=== PATIENT | female | born 1955 | race Caucasian/White ===

== ENCOUNTER 2018-11-05 10:44 | Emergency (ER) | payer OTHER ==
[2018-11-05 10:53] VITALS: TEMP 98.6; BMI 54.1
--- NOTE | 2018-11-05 10:53 | PDOC ---
History of Present Illness - General Chief Complaint: Respiratory Stated Complaint: COUGH, DIFF BREATHING Time Seen by Provider: 11/05/18 10:45 History Source: Patient Exam Limitations: No Limitations - History of Present Illness Initial Comments: 11/05/18 10:47 63 yo h/o sasonal allergies., here with worsening sob, cough and orthopnea . states cough and sob is worse in early am. is sleeping with 4 pillows. no f/c cough nonproductive. no exertional dyspnea, no leg swelling. no tobacco history , however has significant second hand smoke exposure ( both parents growing up, and her sister smoke ) no f/c no cp. denies hemptysis. used to use claritin for allergies, not currently taking any meds. no other complaints. 11/05/18 11:05 Past History - Past Medical History Allergies/Adverse Reactions: Allergies Allergy/AdvReac Type Severity Reaction Status Date / Time codeine Allergy Verified 11/05/18 10:49 Home Medications: Ambulatory Orders Albuterol Sulfate Inhaler - [Ventolin HFA Inhaler -] 2 inh PO Q4H PRN #1 inh Fluticasone Prop 0.05% Nasal [Flonase -] 1 spray NS DAILY #1 bot 11/05/18 Anemia: No Asthma: No Cancer: No Cardiac Disorders: No CVA: No COPD: No CHF: No Dementia: No Diabetes: No GI Disorders: No Disorders: No HTN: No Hypercholesterolemia: Yes Liver Disease: No Seizures: No Thyroid Disease: No - Surgical History Abdominal Surgery: No Appendectomy: No Cardiac Surgery: No Cholecystectomy: No Lung Surgery: No Neurologic Surgery: No Orthopedic Surgery: No - Suicide/Smoking/Psychosocial Hx Smoking History: Former smoker Have you smoked in the past 12 months: No Number of Cigarettes Smoked Daily: 0 If you are a former smoker, when did you quit?: 1973 Hx Alcohol Use: No Drug/Substance Use Hx: No Substance Use Type: None Hx Substance Use Treatment: No Review of Systems - Review of Systems Constitutional: No: Chills, Diaphoresis, Fever Respiratory: Yes: Cough, Shortness of Breath Cardiac (ROS): No: Chest Pain, Edema Integumentary: No: Bruising, Change in Color Neurological: Yes: Other All Other Systems: Reviewed and Negative *Physical Exam - Physical Exam Comments: 11/05/18 10:49 awake alert bilat nasal turbinate enlargement. posterior pharynx cobblestoning. lungs clear no wheezes no crackles. . heart rrr no mrg abd soft obese nontender ext wwp no edema. nuero alert oriented. skin warm and dry no rash. 11/05/18 11:03 Heart Score/ECG Review #1 General ECG Interpretation: Sinus Rhythm, Normal Rate (76), Normal Intervals, No acute ischemic changes ED Treatment Course - LABORATORY CBC & Chemistry Diagram: 11/05/18 11:15 11/05/18 11:15 Medical Decision Making - Medical Decision Making 11/05/18 10:50 63 yo F with no significant pmhx here with sob cough, orthopnea. h/o second hand smoke exposure and seasonal allergies. differential chf pna, postnasal drip. anemia, bronchitis. plan cbc cmp ekg, cxr cmp, BNP cardiac will treat with duoneb 11/05/18 11:05 11/05/18 12:28 pt with normal apppearing cxr. trop negative labs unremarkable. cough improved with duoneb. awaiting BNP. possible dc home with inhaler and pulm fu. pt denies cp. 11/05/18 13:08 d/w dr dennis. will see pt outpt. will give referral to [facility] for [facility]. pt dc with flonase and duoneb. *DC/Admit/Observation/Transfer Diagnosis at time of Disposition: Post-nasal drip, Bronchitis - Discharge Dispostion Disposition: HOME Condition at time of disposition: Improved Decision to Admit order: No - Prescriptions Prescriptions: Albuterol Sulfate Inhaler - [Ventolin HFA Inhaler -] 2 inh PO Q4H PRN #1 inh PRN Reason: Cough Fluticasone Prop 0.05% Nasal [Flonase -] 1 spray NS DAILY #1 bot - Referrals Referrals: Stephan Vargas MD [Staff Physician] - Yosvany Dennis MD [Primary Care Provider] - - Patient Instructions Printed Discharge Instructions: DI for Acute Bronchitis Additional Instructions: you can use albuterol inhaler 2 puffs every 4 nhrs as needed for cough, shortness of breath. use flonase nasal spray one spray each nostril daily to help with allerigic rhinitis and post nasal drip. you should also continue using claritin. follow up with DR Dennis, within one week. return for any swelling , chest pain, worsening shortness of breath or any concerns. you may also consider seeing a distribution estimator see referral information for Dr Vargas. call to schedule. - Post Discharge Activity
[2018-11-05] MEDS ORDERED: ALBUTEROL SO4 2.5/IPRATROPIUM 0.5 INH SOL 3 ML VIAL.NEB. NEB ONE ×2 (11:02→11:25)
[2018-11-05 11:27] LABS: BASO % 0.6 % (0-2.0); EOS % 4.8 % (0-4.5); HEMATOCRIT 47.1 % (32.4-45.2); HEMOGLOBIN 15.6 GM/dl (10.7-15.3); LYMPH % 29.3 % (8-40); MCHC 33.2 g/dl (32.0-36.0); MEAN CELL VOLUME 84.3 fl (80-96); MEAN PLT VOLUME 7.2 fl (7.5-11.1); MONO % 4.7 % (3.8-10.2); NEUT % 60.6 % (42.8-82.8); PLATELET COUNT 346 K/MM3 (134-434); RBC 5.59 M/mm3 (3.60-5.2); RDW 14.6 % (11.6-15.6)
[2018-11-05 11:47] LABS: ALBUMIN 3.8 g/dl (3.4-5.0); BILIRUBIN,TOTAL 0.5 mg/dl (0.2-1); CREATININE 0.8 mg/dl (0.55-1.3); POTASSIUM 4.1 mmol/L (3.5-5.1); TOT PROT 6.8 g/dl (6.4-8.2)
[2018-11-05 13:17] VITALS: BP 132/75; PULSE 71
--- NOTE | 2018-11-06 13:38 | EKG ---
Test Reason : Blood Pressure : / mmHG Vent. Rate : 076 BPM Atrial Rate : 076 BPM P-R Int : 156 ms QRS Dur : 088 ms QT Int : 388 ms P-R-T Axes : 028 -26 015 degrees QTc Int : 436 ms NORMAL SINUS RHYTHM LOW VOLTAGE QRS BORDERLINE ECG NO PREVIOUS ECGS AVAILABLE Confirmed by MD LUIS, JOHNY ([id number]) on 11/06/2018 1:37:33 PM Referred By: JORDAN STONE Confirmed By:JOHNY SMITH MD
== END 2018-11-05 13:15 | disposition home or self-care (01) ==
LOC: SUPCPDRO 10:44 → FER 10:44
PROC: 3E0F7GC Introduction of Other Therapeutic Substance into Respiratory Tract, Via Natural or Artificial Opening (ICD-10-PCS; principal; 2018-11-05)
DX: R09.82 Postnasal drip (principal); J40 Bronchitis, not specified as acute or chronic; Z87.891 Personal history of nicotine dependence; E78.00 Pure hypercholesterolemia, unspecified
CPT/HCPCS: 36415; 71046-TC-FY; 80053; 83880; 84484; 85025; 93005; 99285-25